=== PATIENT | male | born 1965 | race Caucasian/White ===

== ENCOUNTER 2018-06-19 16:59 | Emergency (ER) | payer OTHER ==
[~2018-06-19] VITALS: Ht 175.3 cm; Wt 117.5 kg
[2018-06-19 17:05] VITALS: BP 142/88
[2018-06-19] MEDS ORDERED: SODIUM CHLORIDE FLUSH 10ML SYR IVF ONE (18:00)
[2018-06-19] MEDS ORDERED: FAMOTIDINE 20 MG/2 ML IVP ONE (18:00)
[2018-06-19] MEDS ORDERED: ONDANSETRON 2MG/ML, 2ML IVPush ONE (18:00)
[2018-06-19 18:03] LABS: BASOPHILS # (AUTO) 0.02 x10^3/uL (0-0.1); BASOPHILS % (AUTO) 0 % (0-1); EOSINOPHILS # (AUTO) 0.04 x10^3/uL (0-0.4); EOSINOPHILS % (AUTO) 1 % (1-7); LYMPHOCYTES # (AUTO) 1.43 x10^3/uL (1-3.4); LYMPHOCYTES % (AUTO) 17 % (22-44); MD NO; MEAN CORPUSCULAR HEMOGLOBIN 31.7 pg (27.5-34.5); MEAN PLATELET VOLUME 7.6 fL (7.4-10.4); MONOCYTES # (AUTO) 0.89 x10^3/uL (0.2-0.8); MONOCYTES % (AUTO) 11 % (2-9); NEUTROPHILS # (AUTO) 6.03 x10^3/uL (1.8-6.8); NEUTROPHILS % (AUTO) 72 % (42-75); PLATELET COUNT 226 x10^3/uL (130-400); RED BLOOD COUNT 4.58 x10^6/uL (4.38-5.82); RED CELL DISTRIBUTION WIDTH 13.2 % (9.4-14.8)
[2018-06-19] MEDS ORDERED: FAMOTIDINE 20 MG/2 ML ONE (18:08)
[2018-06-19] MEDS ORDERED: ONDANSETRON 2MG/ML, 2ML ONE (18:08)
[2018-06-19 18:16] LABS: ALANINE AMINOTRANSFERASE 37 U/L (12-78); ALBUMIN 3.5 g/dL (3.4-5.0); ANION GAP 6 mmol/L (5-15); CHLORIDE 107 mmol/L (98-107)
[2018-06-19 18:22] LABS: ALKALINE PHOSPHATASE 60 U/L (45-117); CREATININE 1.04 mg/dL (0.7-1.3); TOTAL PROTEIN 6.8 g/dL (6.4-8.2); TROPONIN I < 0.015 ng/mL (0.000-0.045)
[2018-06-19] MEDS ORDERED: MAALOX/HYOSCYAMINE/LIDOCAINE 45 ML BTL ONE (18:52)
[2018-06-19] MEDS ORDERED: MAALOX/HYOSCYAMINE/LIDOCAINE 45 ML BTL PO ONE (19:00)
--- NOTE | 2018-06-19 20:01 | NUR ---
Patient/Caregiver given discharge instructions and they have confirmed that they understand the instructions. Patient ambulatory with steady gait.
== END 2018-06-19 20:03 | disposition home or self-care (01) ==
LOC: ED 18:29
DX: K29.00 Acute gastritis without bleeding (principal); Z87.891 Personal history of nicotine dependence
CPT/HCPCS: 36415; 76700; 80053; 83690; 84484; 85025; 93005; 96374; 96375; 99284; J2405; J3490